=== PATIENT | male | born 1980 | race American Indian/Alaskan Native ===

== ENCOUNTER 2020-02-28 10:10 | Emergency (ER) | payer OTHER ==
--- NOTE | 2020-02-28 10:18 | EDM.PDOC ---
ED HPI GENERAL MEDICAL PROBLEM - General Chief Complaint: Respiratory Problem Stated Complaint: POSS. COVID Time Seen by Provider: 02/28/20 10:18 Source of Information: Reports: Patient, Old Records, RN, RN Notes Reviewed History Limitations: Reports: No Limitations - History of Present Illness INITIAL COMMENTS - FREE TEXT/NARRATIVE: Pt presents to ER sent from [facility] stating that he did not pass their COVID screening due to one week of cough and feeling short of breath. Pt states he actually started feeling better yesterday, but they told him to come to the ER anyway. He denies fever or chest pain. He is unsure if he has had any COVID exposure. Onset: Sudden Duration: Week(s): (1) Location: Reports: Chest, Generalized Quality: Reports: Other (Denies pain) Severity: Mild Improves with: Reports: None Worsens with: Reports: Other (Exertion) Associated Symptoms: Reports: No Other Symptoms - Related Data Allergies Allergy/AdvReac Type Severity Reaction Status Date / Time No Known Allergies Allergy Verified 02/28/20 11:54 Home Meds: Home Meds Acetaminophen/Diphenhydramine [Tylenol Pm Ex-Strength Caplet] 1 each PO 02/28/20 [History] Past Medical History Endocrine/Metabolic History: Reports: Obesity/BMI 30+ Social & Family History - Family History Family Medical History: Noncontributory - Living Situation & Occupation Living situation: Reports: with Significant Other ED ROS GENERAL - Review of Systems Review Of Systems: Comprehensive ROS is negative, except as noted in HPI. ED EXAM, GENERAL - Physical Exam Exam: See Below Exam Limited By: No Limitations General Appearance: Alert, WD/WN, No Apparent Distress, Obese Eye Exam: Bilateral Eye: Normal Inspection Nose: Normal Inspection, Normal Mucosa, No Blood Throat/Mouth: Normal Inspection, Normal Lips, Normal Teeth, Normal Gums, Normal Oropharynx, Normal Voice, No Airway Compromise Head: Atraumatic, Normocephalic Neck: Normal Inspection, Supple, Non-Tender, Full Range of Motion Respiratory/Chest: No Respiratory Distress, Lungs Clear, Normal Breath Sounds, No Accessory Muscle Use, Chest Non-Tender Cardiovascular: Regular Rate, Rhythm, No Edema GI/Abdominal: Normal Bowel Sounds, Soft, Non-Tender, Other (Benign obese abdomen) Extremities: Normal Inspection Neurological: Alert, Oriented, No Motor/Sensory Deficits Psychiatric: Normal Affect, Normal Mood Skin Exam: Warm, Dry, Intact, Normal Color, No Rash Course - Orders/Labs/Meds Labs: Laboratory Tests 02/28/20 Range/Units 10:18 SARS CoV-2 RNA Rapid FLORENCIA Positive H (NEGATIVE) - Radiology Interpretation Free Text/Narrative:: [facility] [place] [facility] Final Radiology Report Call: [phone] assistance Online chat: [email or web address] Name: SARAH LUTZ Age: 40Years M Date: 02/28/2020 SSN: -- : [id number] Study: CR CHEST 1V FRONTAL Requesting Physician: THI WEEKS Images: 1 Addl Studies: Provided Clinical History: COVID Contrast: Contrast Medium: Contrast Amount: Contrast Method: CONFIDENTIALITY STATEMENT This report is intended only for use by the referring physician, and only in accordance with law. If you received this in error, call [phone]. Page 1 of 1 PROCEDURE INFORMATION: Exam: XR Chest, 1 View Exam date and time: 02/28/2020 11:03 AM Age: 40 years old Clinical indication: Other: Covid + TECHNIQUE: Imaging protocol: XR of the chest Views: 1 view. COMPARISON: No relevant prior studies available. FINDINGS: Lungs: There is minimal patchy increased airspace opacity in the periphery of the lower lobes bilaterally. Pleural space: Unremarkable. No pleural effusion. No pneumothorax. Heart/Mediastinum: Unremarkable. No cardiomegaly. Bones/joints: Unremarkable. IMPRESSION: Mild peripheral airspace opacities. Early pneumonia is possible. Thank you for allowing us to participate in the care of your patient. Dictated and Authenticated by: Anthony Hooker MD 02/28/2020 11:19 AM Central Time ([place] & [place]) - Re-Assessments/Exams Free Text/Narrative Re-Assessment/Exam: 02/28/20 12:16 Pt is comfortable, feeling better the last 2 days. Oxygen saturations 97% on room air, afebrile, good appetite. I see no indication for further work up or admission at this time as he is tolerating COVID quite well, and is into the second week of the illness. Departure - Departure Time of Disposition: 11:34 Disposition: Home, Self-Care 01 Condition: Good Clinical Impression: COVID-19 virus detected - Discharge Information *PRESCRIPTION DRUG MONITORING PROGRAM REVIEWED*: Not Applicable *COPY OF PRESCRIPTION DRUG MONITORING REPORT IN PATIENT KACI: Not Applicable Instructions: COVID-19 Frequently Asked Questions, COVID-19, Prevent the Spread of COVID-19 if You Are Sick - [facility] [place][NOTE 3] Forms: ED Department Discharge Additional Instructions: Rx: Decadron (Dexamethasone) 4mg May use over the counter Vitamin D 4000IU once daily, Zinc 25mg to 50mg once daily, and Vitamin C 2500mg daily. Over the counter Melatonin up to 10mg one hour before bedtime for sleep. Self quarantine at home for 14 days from the onset of your illness. Call 911 if you develop difficulty breathing.
--- NOTE | 2020-02-28 11:20 | CR ---
PROCEDURE INFORMATION: Exam: XR Chest, 1 View Exam date and time: 02/28/2020 11:03 AM Age: 40 years old Clinical indication: Other: Covid + TECHNIQUE: Imaging protocol: XR of the chest Views: 1 view. COMPARISON: No relevant prior studies available. FINDINGS: Lungs: There is minimal patchy increased airspace opacity in the periphery of the lower lobes bilaterally. Pleural space: Unremarkable. No pleural effusion. No pneumothorax. Heart/Mediastinum: Unremarkable. No cardiomegaly. Bones/joints: Unremarkable. IMPRESSION: Mild peripheral airspace opacities. Early pneumonia is possible.
== END 2020-02-28 12:15 | disposition home or self-care (01) ==
LOC: DL.ED 10:10
DX: U07.1 COVID-19 (principal); E66.9 Obesity, unspecified; Z68.34 Body mass index [BMI] 34.0-34.9, adult
CPT/HCPCS: 71045; 99285-25; U0002